=== PATIENT | female | born 1950 | race Caucasian/White ===

== ENCOUNTER → 2017-09-08 | Outpatient (CLI) | payer OTHER | LOC: RAD 01:42 | DX: Z12.31 Encounter for screening mammogram for malignant neoplasm of breast (principal) ==

== ENCOUNTER → 2018-04-21 | Outpatient (CLI) | payer OTHER | LOC: NUC 08:40 | DX: M85.89 Other specified disorders of bone density and structure, multiple sites (principal); Z78.0 Asymptomatic menopausal state; E78.5 Hyperlipidemia, unspecified; G47.00 Insomnia, unspecified; J30.9 Allergic rhinitis, unspecified; I10 Essential (primary) hypertension; F41.9 Anxiety disorder, unspecified; H91.90 Unspecified hearing loss, unspecified ear ==

== ENCOUNTER → 2019-06-19 | Outpatient (CLI) | payer OTHER | LOC: RAD 01:33 | DX: Z12.31 Encounter for screening mammogram for malignant neoplasm of breast (principal) ==

== ENCOUNTER → 2020-09-19 | Outpatient (CLI) | payer OTHER | LOC: NUC 13:16 | PROVIDERS: ATTEND Internal Medicine | DX: Z12.31 Encounter for screening mammogram for malignant neoplasm of breast (principal); M81.0 Age-related osteoporosis without current pathological fracture; N95.9 Unspecified menopausal and perimenopausal disorder ==

== ENCOUNTER → 2021-10-14 | Outpatient (CLI) | payer OTHER | LOC: BC 09:02 | PROVIDERS: ATTEND Internal Medicine | DX: Z12.31 Encounter for screening mammogram for malignant neoplasm of breast (principal); N64.89 Other specified disorders of breast ==

== ENCOUNTER → 2021-11-24 | Outpatient (CLI) | payer OTHER | LOC: ULTRA 10:58 → BC 14:53 | PROVIDERS: ATTEND Internal Medicine | DX: N63.10 Unspecified lump in the right breast, unspecified quadrant (principal); N63.20 Unspecified lump in the left breast, unspecified quadrant ==